=== PATIENT | male | born 1995 | race Caucasian/White ===

== ENCOUNTER 2016-12-21 18:24 | Emergency (ER) | payer OTHER ==
[2016-12-21 19:45] LABS: BASOPHIL 0.5 % (0-2); EOSINOPHIL 5.8 % (0-5); HCT 46.3 % (42.0-52.0); HGB 15.9 g/dl (13.2-18.0); LYMPHOCYTE 41.1 % (15-48); MCH 28.9 pg (25.0-31.0); MCHC 34.3 g/dL (32.0-36.0); MONOCYTE 10.3 % (0-12); MPV 9.9 fL (6.0-9.5); NEUTROPHIL 42.3 % (41-80); PLT 245 K/uL (150-400); RBC 5.51 M/uL (4.70-6.00); RDW 12.9 % (11.5-14.0); WBC 5.6 K/uL (4.0-10.5)
== END 2016-12-21 20:05 | disposition home or self-care (01) ==
LOC: FER 18:24
PROVIDERS: Emergency Medicine
DX: K92.1 Melena (principal); Z80.0 Family history of malignant neoplasm of digestive organs
CPT/HCPCS: 36415; 85025; 99284